=== PATIENT | male | born 1970 | race Caucasian/White ===

== ENCOUNTER 2018-07-05 09:34 | Emergency (ER) | payer OTHER, SELFPAY ==
[~2018-07-05] VITALS: Ht 195.6 cm; Wt 111.4 kg
[~2018-07-05 09:34] MED LIST: METF-960 PO; SERT50TA12 PO
[2018-07-05] MEDS ORDERED: DILT30 PO (09:49)
[2018-07-05] MEDS ORDERED: DILT60 PO (09:53)
[2018-07-05] MEDS ORDERED: FURO40I IM (09:53)
[2018-07-05] MEDS ORDERED: LISI-662 PO (09:54)
[2018-07-05] MEDS ORDERED: ATOR40TA28 PO (09:54)
[2018-07-05] MEDS ORDERED: CALC25 PO (09:54)
[2018-07-05] MEDS ORDERED: ALOG25TA2 PO (09:54)
[2018-07-05] MEDS ORDERED: GABA-529 PO (09:54)
[2018-07-05] MEDS ORDERED: HYDR25TA84 PO (09:54)
[2018-07-05] MEDS ORDERED: METO50 PO (09:54)
[2018-07-05 09:55] LABS: GLUCOSE,POINT OF CARE 117 MG/DL (70-110)
[2018-07-05 11:57] LABS: BASOPHILS % (AUTO) 0.9 % (0.0-2.0); EOSINOPHILS % (AUTO) 7.4 % (1.0-6.0); HEMATOCRIT 23.5 % (41-53); HEMOGLOBIN 7.8 g/dL (13.5-17.5); LYMPHOCYTES # (AUTO) 0.8 K/uL (1.0-4.8); LYMPHOCYTES % (AUTO) 11.8 % (22.0-44.0); MEAN CORPUSCULAR HGB CONC 33.1 G/dL (31.0-37.0); MEAN CORPUSCULAR VOLUME 94 fL (80-100); MONOCYTES # (AUTO) 0.4 K/uL (0.1-1.0); MONOCYTES % (AUTO) 5.6 % (2.0-9.0); NEUTROPHILS # (AUTO) 5.1 K/uL (1.8-7.7); NEUTROPHILS % (AUTO) 74.3 % (40.0-70.0); PLATELET COUNT (AUTO) 259 K/uL (150-450); RED BLOOD CELL COUNT(AUTO) 2.51 MIL/uL (4.50-5.90); RED CELL DISTRIBUTION WIDTH 14.1 % (11.5-14.5)
[2018-07-05 12:14] LABS: CALCIUM, TOTAL 7.7 mg/dL (8.8-10.5); CREATININE 5.15 mg/dL (0.60-1.30); POTASSIUM 3.8 mmol/L (3.5-5.1)
[2018-07-05 12:20] LABS: ALBUMIN 1.5 g/dL (3.4-5.0); BILIRUBIN,TOTAL 0.1 mg/dL (0.1-1.0)
[2018-07-05 20:05] VITALS: BP 178/99
== END 2018-07-05 15:09 | disposition home or self-care (01) ==
LOC: EMS 09:38
DX: I12.9 Hypertensive chronic kidney disease with stage 1 through stage 4 chronic kidney disease, or unspecified chronic kidney disease (principal); E11.22 Type 2 diabetes mellitus with diabetic chronic kidney disease; N18.9 Chronic kidney disease, unspecified; D64.9 Anemia, unspecified; E78.00 Pure hypercholesterolemia, unspecified; F17.210 Nicotine dependence, cigarettes, uncomplicated; Z79.899 Other long term (current) drug therapy
CPT/HCPCS: 93005